=== PATIENT | female | born 1970 | race Caucasian/White ===

== ENCOUNTER → 2021-09-10 | Outpatient (CLI) | payer OTHER, SELFPAY ==
--- NOTE | 2021-09-10 08:02 | MRI_ITS ---
STUDY: MRI CERVICAL SPINE WITHOUT CONTRAST REASON FOR EXAM: Female, 50 years old. Neck pain, right shoulder and arm pain x3 months. TECHNIQUE: Standardized fat and water weighted pulse sequences were obtained in the sagittal and axial planes. COMPARISON: None FINDINGS: Normal foramen magnum and brainstem-cervical cord junction. Normal craniovertebral junction. Normal anterior atlantoaxial articulation. Normal odontoid process. Normal cervical lordosis. Normal vertebral bodies and posterior osseous elements. C2-3: Normal endplates. Normal disc height, signal and morphology. Normal central canal and intervertebral neural foramina. C3-4: Normal endplates. Normal disc height, signal and morphology. Normal central canal and intervertebral neural foramina. C4-5: Normal endplates. Normal disc height, signal and morphology. Normal central canal and intervertebral neural foramina. C5-6: Normal endplates. Normal disc height. Prominent osteophyte arising from the right uncovertebral joint causing moderate pronounced stenosis of the right intervertebral neural foramen. Smaller osteophyte in the left uncovertebral joint causing mild stenosis of the left intervertebral neural foramen. C6-7: Normal endplates. Normal disc height, signal and morphology. Prominent osteophytic spur in the right uncovertebral joint causing moderately pronounced stenosis of the right intervertebral neural foramen. Normal left intervertebral neural foramen. C7-T1: Normal endplates. Normal disc height, signal and morphology. Normal central canal and intervertebral neural foramina. T1-T2, T2-T3, T3-T4: (Sagittal only). Normal endplates. Normal disc height, signal and morphology. No ventral extradural defects. Normal central canal and intervertebral neural foramina. Normal cervical cord. Normal included upper thoracic spinal cord. Normal included brainstem and cerebellum. Normal visualized soft tissue structures. MRI/Spine Cervical (Routine) IMPRESSION: 1. 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 2. Moderately pronounced stenosis of the right C5-C6 intervertebral neural foramen due to prominent osteophyte arising from the right uncovertebral joint. 3. No MRI evidence of cervical extruded disc fragment. 4. Normal cervical spinal cord. Electronically Signed: Garett Morgan MD at 14:43 EDT ,
== END | disposition home or self-care (01) ==
LOC: MRI 07:50
PROVIDERS: Visit Provider Chiropractor
DX: M54.12 Radiculopathy, cervical region (principal)
CPT/HCPCS: 72141